=== PATIENT | female | born 1975 | race Caucasian/White ===

== ENCOUNTER 2017-03-24 17:29 | Emergency (ER) | payer OTHER ==
[2017-03-24 17:33] VITALS: BP 124/57; PULSE 80; RESP 18; TEMP 97.4
[2017-03-24] MEDS ORDERED: ACETAMINOPHEN TAB 500 MG TAB PO STA (17:35)
--- NOTE | 2017-03-24 18:23 | XR ---
Exam: Right ankle complete TECHNIQUE: 4 views right ankle were obtained. HISTORY: Pain FINDINGS: No acute fracture or subluxation is identified. The ankle mortise is intact. There is no radiopaque f oreign body. Soft tissue structures are unremarkable. There is an inferior calcaneal enthesophyte. IMPRESSION: No acute abnormality is identified.
--- NOTE | 2017-03-24 18:24 | XR ---
Exam: Right tibia and fibula complete. Patient has pain and bruising the mid shaft of the right tibia after injury. COMPARISON: None FINDINGS: No acute fracture or subluxation is identified. There is no radiopaque foreign body. Soft tissue stru ctures are unremarkable. IMPRESSION: No acute abnormality identified.
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
== END 2017-03-24 19:07 | disposition home or self-care (01) ==
LOC: EC 17:29
DX: S80.12XA Contusion of left lower leg, initial encounter (principal); F17.200 Nicotine dependence, unspecified, uncomplicated; Z79.899 Other long term (current) drug therapy; W21.11XA Struck by baseball bat, initial encounter; Y93.64 Activity, baseball
CPT/HCPCS: 73590; 73610; 99283; 29515; L4350